=== PATIENT | female | born 1985 | race Caucasian/White ===

== ENCOUNTER 2018-12-12 09:27 | Emergency (ER) | payer MEDICAID ==
[~2018-12-12] VITALS: Ht 175.3 cm; Wt 80.0 kg
[2018-12-12 10:54] LABS: CLARITY,URINE SLIGHTLY CLOUDY (Clear); COLOR,URINE YELLOW (Yellow); GLUCOSE, URINE NEGATIVE (Neg); KETONES,URINE NEGATIVE (Neg); LEUKOCYTE ESTERASE ,URINE SMALL (Neg); NITRITES, URINE NEGATIVE (Neg); OCCULT BLOOD,URINE LARGE (Neg); PH,URINE 5.5 (4.8-8.0); PROTEIN,URINE NEGATIVE (Neg); UROBILINOGEN,URINE 0.2 E.U/dL (0.2-1.0)
[2018-12-12 11:01] LABS: UA COLLECTION TYPE CLN CATCH MIDSTREAM
[2018-12-12 11:04] LABS: SQUAMOUS EPITHELIAL CELL,UR MANY /LPF (FEW)
[2018-12-12 11:05] LABS: MUCUS STRANDS FEW /LPF (Neg)
[2018-12-12 11:06] LABS: RBC,URINE 50-100 /HPF (0-2)
[2018-12-12 11:07] LABS: BACTERIA,URINE FEW /HPF (Neg)
--- NOTE | 2018-12-12 11:30 | NUR ---
VAG EXAM PERFORMED PER PROVIDER. PATIENT TOLERATED PROCEDURE WELL.
[2018-12-12 12:00] VITALS: BP 107/67
== END 2018-12-12 12:01 | disposition home or self-care (01) ==
LOC: ER 09:27
DX: O20.9 Hemorrhage in early pregnancy, unspecified (principal); O23.591 Infection of other part of genital tract in pregnancy, first trimester; O99.281 Endocrine, nutritional and metabolic diseases complicating pregnancy, first trimester; N89.8 Other specified noninflammatory disorders of vagina; E03.9 Hypothyroidism, unspecified; Z3A.01 Less than 8 weeks gestation of pregnancy; Z88.8 Allergy status to other drugs, medicaments and biological substances
CPT/HCPCS: 36415; 81001; 84702; 86900; 86901; 99283